=== PATIENT | male | born 1995 | race Caucasian/White ===

== ENCOUNTER 2018-02-21 17:48 | Emergency (ER) | payer OTHER | END 2018-02-21 18:31 | disposition home or self-care (01) | LOC: M ED 17:48 | DX: S60.022A Contusion of left index finger without damage to nail, initial encounter (principal); S60.042A Contusion of left ring finger without damage to nail, initial encounter; W23.0XXA Caught, crushed, jammed, or pinched between moving objects, initial encounter; Y92.9 Unspecified place or not applicable; Y93.9 Activity, unspecified; Y99.1 Military activity | CPT/HCPCS: 73140 ==